=== PATIENT | male | born 1940 | race Caucasian/White ===

== ENCOUNTER 2021-10-22 08:45 | Outpatient (CLI) | payer MEDICARE, SELFPAY ==
--- NOTE | ~2021-10-22 | CT_ITS ---
EXAMINATION: CT diagnostic chest wo con DATE: 10/22/2021 09:19 INDICATION: Solitary pulmonary nodule TECHNIQUE: Computed tomography (CT) of the chest was performed without intravenous contrast. The dose -length product (DLP) was 67.94 mGy-cm. Automated exposure control and iterative reconstruction techn ique were employed. COMPARISON: 02/02/2018 FINDINGS: There is severe emphysema. There is a stable 5 mm nodule of the left upper lobe, consistent with old granulomatous disease. Chronic scarring is again noted in the lower lobes, right greater th an left. There is no pleural effusion or pneumothorax. There appear to be secretions in the proximal aspect of the right mainstem bronchus. No pathologically enlarged thoracic lymph nodes are identified . The heart size is normal. IMPRESSION: 1. Severe emphysema. 2. Stable 5 mm nodule of the left upper lobe, most consistent with old granulomatous disease. 3. Stable areas of chronic atelectasis and scarring of the lower lobes. Reviewed, dictated and finalized at location A. IMPRESSION: 1. Severe emphysema. 2. Stable 5 mm nodule of the left upper lobe, most consistent with old granulom atous disease. 3. Stable areas of chronic atelectasis and scarring of the lower lobes.
== END 2021-10-22 08:46 | disposition home or self-care (01) ==
LOC: ANHIMG 08:53
PROVIDERS: PCP Nurse Practitioner; Visit Provider Nurse Practitioner
DX: R91.1 Solitary pulmonary nodule (principal); J43.9 Emphysema, unspecified; R91.8 Other nonspecific abnormal finding of lung field
CPT/HCPCS: 71250